=== PATIENT | female | born 1975 | race Caucasian/White ===

== ENCOUNTER 2017-02-08 01:55 | Inpatient (IN) | payer MEDICAID ==
[~2017-02-08 01:55] MED LIST: ALKA-SELTZER P1 EA13 PO; CHLORDIAZEPOXID25 M1 PO
[2017-02-08 02:35] LABS: BASO % 0.2 % (0-2); EOS % 0.4 % (0-7); EOSINOPHIL ABSOLUTE COUNT 0.1 tho/cmm (0.0-0.7); HCT-HEMATOCRIT 27.3 % (34.0-49.0); HGB-HEMOGLOBIN 9.4 gm/dl (12.0-15.5); IMMATURE GRANULOCYTES ABSOLUTE 0.06 tho/cmm (0-0.03); IMMATURE GRANULOCYTES PERCENT 0.5 % (0-0.3); LYMPH % 12.2 % (20-45); LYMPH ABSOLUTE COUNT 1.5 tho/cmm (0.8-4.5); MCH (MEAN CORPUSCULAR HGB) 34.1 pg (28.0-32.0); MCHC MEAN CORPUSCULAR HGB CONC 34.4 % (32.0-36.0); MCV (MEAN CELL VOLUME) 98.9 fl (82.0-96.0); MEAN PLATELET VOLUME 9.7 cmc (9.4-12.4); MONO % 6.5 % (0-12); MONOCYTE ABSOLUTE COUNT 0.8 tho/cmm (0.0-1.2); NEUTROPHIL ABSOLUTE COUNT 10.2 tho/cmm (1.6-8.0); NEUTROPHIL-AUTOMATED 10.2 tho/cmm (1.6-8.0); NEUTROPHILS % 80.2 % (40-80); PLATELET COUNT 171 tho/cmm (150-450); RED BLOOD COUNT 2.76 mil/cmm (4.00-5.20); RED CELL DISTRIBUTION WIDTH 18.5 % (12.4-16.4); WHITE BLOOD COUNT 12.7 tho/cmm (4.0-10.0)
[2017-02-08 02:56] LABS: ALB/GLOB RATIO 0.2 (0.8-2.0); ALKALINE PHOSPHATASE 166 U/L (33-138); ALT/SGPT 55 U/L (12-78); ANION GAP 11 mmol/L (0-20); AST/SGOT 175 U/L (10-40); BILIRUBIN,TOTAL 8.5 mg/dl (0-1.5); BLOOD UREA NITROGEN 31 mg/dl (6-24); CARBON DIOXIDE-VENOUS 28 mmol/L (22-32); CHLORIDE 100 mmol/l (96-110); CREATININE 1.04 mg/dl (0.50-1.10); GLUCOSE 116 mg/dL (70-110); LIPASE 391 U/L (73-393); POTASSIUM 3.6 mmol/L (3.7-5.1); SODIUM 135 mmol/L (135-145); eGFR VALUE FOR BLACK 77 mL/Min
[2017-02-08 02:57] LABS: URINE BILIRUBIN MODERATE (NEG); URINE BLOOD SMALL (NEG); URINE GLUCOSE (UA) NEGATIVE (NEG); URINE KETONE SMALL (NEG); URINE LEUKOCYTE ESTERASE POSITIVE (NEG); URINE NITRITE NEGATIVE (NEG); URINE PROTEIN SMALL (NEG); URINE SPECIFIC GRAVITY 1.015 (1.003-1.030)
[2017-02-08 02:58] LABS: URINE APPEARANCE HAZY; URINE COLOR ORANGE
[2017-02-08 03:01] LABS: ALBUMIN 1.6 g/dl (3.5-5.0)
[2017-02-08 03:14] LABS: URINE BACTERIA 3+; URINE RBC 0-2 /[HPF] (0-5)
[2017-02-08 04:01] LABS: INR 1.4 INR (0.9-1.1); PROTHROMBIN TIME 16.8 SECONDS (9.0-13.6)
[2017-02-08 05:54] LABS: BILIRUBIN,DIRECT 7.2 mg/dl (0.0-0.3); BILIRUBIN,INDIRECT 1.3 mg/dL (0.0-1.0); BILIRUBIN,TOTAL 8.5 mg/dl (0-1.5)
[2017-02-08 05:56] LABS: IRON BINDING CAPACITY 96 ug/dl (250-450)
[2017-02-08 06:03] LABS: MAGNESIUM 2.8 mg/dl (1.8-2.6)
[2017-02-08 06:09] LABS: IRON 43 ug/dl (37-170)
[2017-02-08 06:52] LABS: FERRITIN 639 ng/ml (8-250)
[2017-02-09 02:17] LABS: BASO % 0.2 % (0-2); EOS % 0.3 % (0-7); HCT-HEMATOCRIT 24.1 % (34.0-49.0); HGB-HEMOGLOBIN 8.2 gm/dl (12.0-15.5); IMMATURE GRANULOCYTES ABSOLUTE 0.03 tho/cmm (0-0.03); IMMATURE GRANULOCYTES PERCENT 0.3 % (0-0.3); LYMPH % 10.6 % (20-45); LYMPH ABSOLUTE COUNT 1.2 tho/cmm (0.8-4.5); MCH (MEAN CORPUSCULAR HGB) 34.3 pg (28.0-32.0); MCV (MEAN CELL VOLUME) 100.8 fl (82.0-96.0); MEAN PLATELET VOLUME 9.7 cmc (9.4-12.4); NEUTROPHIL ABSOLUTE COUNT 8.6 tho/cmm (1.6-8.0); NEUTROPHIL-AUTOMATED 8.6 tho/cmm (1.6-8.0); NEUTROPHILS % 79.6 % (40-80); PLATELET COUNT 147 tho/cmm (150-450); RED BLOOD COUNT 2.39 mil/cmm (4.00-5.20); RED CELL DISTRIBUTION WIDTH 18.8 % (12.4-16.4); WHITE BLOOD COUNT 10.8 tho/cmm (4.0-10.0)
[2017-02-09 02:31] LABS: ALB/GLOB RATIO 0.2 (0.8-2.0); ALBUMIN 1.5 g/dl (3.5-5.0); BILIRUBIN,DIRECT 6.6 mg/dl (0.0-0.3); BILIRUBIN,INDIRECT 1.2 mg/dL (0.0-1.0); BILIRUBIN,TOTAL 7.8 mg/dl (0-1.5); C-REACTIVE PROTEIN 9.5 mg/dl (0-0.9)
[2017-02-10 05:24] LABS: BASO % 0.3 % (0-2); EOS % 0.7 % (0-7); EOSINOPHIL ABSOLUTE COUNT 0.1 tho/cmm (0.0-0.7); HGB-HEMOGLOBIN 8.3 gm/dl (12.0-15.5); IMMATURE GRANULOCYTES ABSOLUTE 0.04 tho/cmm (0-0.03); IMMATURE GRANULOCYTES PERCENT 0.4 % (0-0.3); LYMPH % 14.1 % (20-45); LYMPH ABSOLUTE COUNT 1.6 tho/cmm (0.8-4.5); MCH (MEAN CORPUSCULAR HGB) 34.7 pg (28.0-32.0); MCHC MEAN CORPUSCULAR HGB CONC 34.7 % (32.0-36.0); MEAN PLATELET VOLUME 9.8 cmc (9.4-12.4); MONO % 10.4 % (0-12); MONOCYTE ABSOLUTE COUNT 1.2 tho/cmm (0.0-1.2); NEUTROPHIL ABSOLUTE COUNT 8.4 tho/cmm (1.6-8.0); NEUTROPHIL-AUTOMATED 8.4 tho/cmm (1.6-8.0); NEUTROPHILS % 74.1 % (40-80); PLATELET COUNT 151 tho/cmm (150-450); RED BLOOD COUNT 2.39 mil/cmm (4.00-5.20); RED CELL DISTRIBUTION WIDTH 17.7 % (12.4-16.4); WHITE BLOOD COUNT 11.4 tho/cmm (4.0-10.0)
[2017-02-10 05:25] LABS: INR 1.8 INR (0.9-1.1); PROTHROMBIN TIME 20.7 SECONDS (9.0-13.6)
[2017-02-10 05:27] LABS: HCT-HEMATOCRIT 23.9 % (34.0-49.0)
[2017-02-10 05:33] LABS: ANION GAP 13 mmol/L (0-20); BLOOD UREA NITROGEN 28 mg/dl (6-24); CALCIUM 7.7 mg/dl (8.5-10.5); CARBON DIOXIDE-VENOUS 23 mmol/L (22-32); CHLORIDE 97 mmol/l (96-110); CREATININE 1.27 mg/dl (0.50-1.10); GLUCOSE 102 mg/dL (70-110); SODIUM 129 mmol/L (135-145); eGFR VALUE FOR BLACK 60 mL/Min
[2017-02-10 15:38] LABS: BODY FLUID LYMPHOCYTES 52 %; BODY FLUID MACROPHAGES 35 %; BODY FLUID MESOTHELIAL CELLS 3 %; BODY FLUID NEUTROPHILS 10 %
[2017-02-10 15:39] LABS: BODY FLUID APPEARANCE HAZY (CLEAR); BODY FLUID COLOR YELLOW (COLORLESS); BODY FLUID VOLUME 1100 ml
[2017-02-10 15:40] LABS: BODY FLUID RBC COUNT 1000 cmm (0); BODY FLUID WBC COUNT 98 cmm
[2017-02-11 08:42] LABS: BODY FLUID TYPE ASCITIC; FLUID ALBUMIN <0.6 g/dl
== END 2017-02-10 15:55 | DRG 432 ==
LOC: EDMED 01:55 → EMR2 05:35 → 5WE 06:20
PROVIDERS: Emergency Medicine; Internal Medicine; Radiology Diagnostic Radiology; ADMIT Hospitalist
PROC: 3E0F7GC Introduction of Other Therapeutic Substance into Respiratory Tract, Via Natural or Artificial Opening (ICD-10-PCS; 2017-02-08)
PROC: 0W9G3ZX Drainage of Peritoneal Cavity, Percutaneous Approach, Diagnostic (ICD-10-PCS; principal; 2017-02-09)
DX: K70.31 Alcoholic cirrhosis of liver with ascites (principal); E43 Unspecified severe protein-calorie malnutrition; K76.6 Portal hypertension; D68.4 Acquired coagulation factor deficiency; D62 Acute posthemorrhagic anemia; E88.09 Other disorders of plasma-protein metabolism, not elsewhere classified; E86.0 Dehydration; N39.0 Urinary tract infection, site not specified; F31.9 Bipolar disorder, unspecified; F43.10 Post-traumatic stress disorder, unspecified; M25.512 Pain in left shoulder; N28.9 Disorder of kidney and ureter, unspecified; K76.89 Other specified diseases of liver; Z68.28 Body mass index [BMI] 28.0-28.9, adult; R19.5 Other fecal abnormalities; F43.12 Post-traumatic stress disorder, chronic
CPT/HCPCS: C1729; J0744; J1815; J2250; J2270; J2405; J3010; J3430; J7030; Q9967

== ENCOUNTER 2017-07-07 16:50 | Emergency (ER) | payer SELFPAY ==
[~2017-07-07] VITALS: Ht 149.9 cm; Wt 63.5 kg
[2017-07-07] MEDS ORDERED: SPIRONOLACTONE50 M1 PO (17:10)
[2017-07-07] MEDS ORDERED: LASIX20 M1 PO (17:10)
[2017-07-07 17:38] LABS: BASO % 0.2 % (0-2); HCT-HEMATOCRIT 34.9 % (34.0-49.0); HGB-HEMOGLOBIN 12.3 gm/dl (12.0-15.5); IMMATURE GRANULOCYTES ABSOLUTE 0.02 tho/cmm (0-0.03); IMMATURE GRANULOCYTES PERCENT 0.2 % (0-0.3); LYMPH % 6.2 % (20-45); LYMPH ABSOLUTE COUNT 0.6 tho/cmm (0.8-4.5); MCH (MEAN CORPUSCULAR HGB) 33.2 pg (28.0-32.0); MCHC MEAN CORPUSCULAR HGB CONC 35.2 % (32.0-36.0); MCV (MEAN CELL VOLUME) 94.1 fl (82.0-96.0); MEAN PLATELET VOLUME 10.3 cmc (9.4-12.4); MONO % 9.5 % (0-12); MONOCYTE ABSOLUTE COUNT 0.9 tho/cmm (0.0-1.2); NEUTROPHIL ABSOLUTE COUNT 7.6 tho/cmm (1.6-8.0); NEUTROPHIL-AUTOMATED 7.6 tho/cmm (1.6-8.0); NEUTROPHILS % 83.9 % (40-80); RED BLOOD COUNT 3.71 mil/cmm (4.00-5.20); RED CELL DISTRIBUTION WIDTH 15.5 % (12.4-16.4); WHITE BLOOD COUNT 9.1 tho/cmm (4.0-10.0)
[2017-07-07 17:51] LABS: ALKALINE PHOSPHATASE 133 U/L (33-138); ALT/SGPT 168 U/L (12-78); BILIRUBIN,TOTAL 3.3 mg/dl (0-1.5); BLOOD UREA NITROGEN 36 mg/dl (6-24); CALCIUM 8.5 mg/dl (8.5-10.5); CARBON DIOXIDE-VENOUS 20 mmol/L (22-32); CHLORIDE 96 mmol/l (96-110); CREATININE 1.86 mg/dl (0.50-1.10); GLUCOSE 105 mg/dL (70-110); LIPASE 202 U/L (73-393); SODIUM 132 mmol/L (135-145); eGFR VALUE FOR BLACK 38 mL/Min
[2017-07-07 17:57] LABS: ALB/GLOB RATIO 0.6 (0.8-2.0); ALBUMIN 3.6 g/dl (3.5-5.0); ANION GAP 20 mmol/L (0-20); AST/SGOT 477 U/L (10-40); POTASSIUM 3.6 mmol/L (3.7-5.1)
[2017-07-07 18:28] LABS: PLATELET COUNT 88 tho/cmm (150-450)
[2017-07-07 18:35] LABS: URINE APPEARANCE CLOUDY; URINE BILIRUBIN MODERATE (NEG); URINE BLOOD MODERATE (NEG); URINE COLOR DARK YELLOW; URINE GLUCOSE (UA) NEGATIVE (NEG); URINE KETONE MODERATE (NEG); URINE LEUKOCYTE ESTERASE POSITIVE (NEG); URINE NITRITE NEGATIVE (NEG); URINE PROTEIN MODERATE (NEG)
[2017-07-07 18:35] LABS: INR 1.4 INR (0.9-1.1); PROTHROMBIN TIME 16.3 SECONDS (9.0-13.6)
[2017-07-07 18:58] LABS: URINE BACTERIA 4+
[2017-07-07] MEDS ORDERED: ZOFRAN4 M2 PO (19:48)
== END 2017-07-07 20:08 ==
LOC: EDMED 16:50
PROVIDERS: Emergency Medicine; Family Medicine
DX: E86.0 Dehydration (principal); R11.10 Vomiting, unspecified; K70.30 Alcoholic cirrhosis of liver without ascites; R00.0 Tachycardia, unspecified; F17.200 Nicotine dependence, unspecified, uncomplicated; Z88.5 Allergy status to narcotic agent; Z88.0 Allergy status to penicillin; Z79.899 Other long term (current) drug therapy
CPT/HCPCS: J2405; J2765; J7030